=== PATIENT | male | born 1985 ===

== ENCOUNTER → 2019-02-09 22:16 | Outpatient (REF) | payer OTHER, SELFPAY ==
[2019-02-12 10:39] LABS: RPR Screen Nonreactive (Nonreactive)
== END ==
LOC: LAB 22:16
PROVIDERS: Visit Provider Family Medicine
DX: Z11.3 Encounter for screening for infections with a predominantly sexual mode of transmission (principal); Z11.1 Encounter for screening for respiratory tuberculosis
CPT/HCPCS: 36415; 86592; 87591